=== PATIENT | female | born 1990 | race Caucasian/White ===

== ENCOUNTER 2016-09-06 15:25 | Emergency (ER) | payer OTHER ==
--- NOTE | 2016-09-06 19:50 | DIAGNOSTIC IMAGING REPORT ---
PROCEDURE: XR CHEST 2 VIEW INDICATION: PAIN TECHNIQUE: PA and lateral views. COMPARISON: None. FINDINGS: Lungs are clear. Heart and mediastinum are normal. Thorax is normal. IMPRESSION: 1. Negative chest.
--- NOTE | 2016-09-06 20:08 | DIAGNOSTIC IMAGING REPORT ---
PROCEDURE: CT ABDOMEN/PELVIS W/O CONTRAST INDICATION: Left flank pain. Prior cholecystectomy. TECHNIQUE: Noncontrast axial images with sagittal and coronal reformations. COMPARISON: None. FINDINGS: ABDOMEN: There is mild left hydronephrosis and hydroureter secondary to a 3 mm calculus located ureteral vesicle junction. Left kidney is otherwise normal. Right kidney and ureter are normal. Cholecystectomy (surgical clips). Liver, spleen, pancreas, and aorta are normal. Bowel pattern is normal, including appendix. Metal umbilical piercing device. PELVIS: Uterus and adnexal structures are within normal limits. Bilateral fallopian tubal occlusion devices in position. No evidence of free fluid. IMPRESSION: 1. There is mild left hydronephrosis and hydroureter secondary to a 3 mm calculus located ureteral vesicle junction. 2. Status post cholecystectomy. 3. Bilateral fallopian tube occlusive devices. 4. Findings discussed with Dr. Andres Villafuerte. All CT scans at this facility use dose modulation, iterative reconstruction, and/or weight-based dosing when appropriate to reduce radiation dose to as low as reasonably achievable.
--- NOTE | 2016-09-06 20:23 | ED NURSING NOTES ---
Clinical Report - Nurses [facility] [address] [place] [address] 09/06/2016 15:26 Patient: NO KIM TRIAGE Triage time 15:30 Sep 06 2016. Chief Complaint: VOMITING and (c/o left sided flank pain that began last night, hx of kidney stones). Alert. --15:34 Justine Beatty R.N. 15:29 09/06/16. BP: 122/65. HR: 56. RR: 19. O2 saturation: 100%. Temp: 97.5 F. Pain level now: 12/29. --15:34 Justine Beatty R.N. Weight: 62.1 kg. Height/Length: 62 inches. BMI: 25.1. --15:31 Justine Beatty R.N. Medications None. --15:31 Justine Beatty R.N. Allergies Keflex. Penicillins. --15:31 Justine Beatty R.N. Clindamycin. --15:32 Justine Beatty R.N. Benadryl. --15:32 Justine Beatty R.N. Medication/allergy information source: the patient. --15:34 Justine Beatty R.N. History Arrived by private vehicle. Historian: patient. Accompanied by family. Onset. (last night). She has had nausea and vomiting. Treatment VICE PRINCIPAL: None. PAST MEDICAL HX: Immunizations: up-to-date. Last normal menstrual period- 2nd to control. SOCIAL HX: Smoker- current status unknown. No alcohol use or drug use. No infectious disease exposure. No known contact with a sick individual. ABUSE ASSESSMENT: No report of abuse. SELF HARM ASSESSMENT: A self harm assessment was performed. The patient answered "no" to the question "Do you have thoughts of harming or killing yourself?". FALL RISK ASSESSMENT: Fall risk assessment completed. No fall risk identified. NUTRITIONAL RISK ASSESSMENT: The nutritional risk assessment revealed no deficiencies. FUNCTIONAL ASSESSMENT: Functional assessment: no impairments noted. LEARNING NEEDS ASSESSMENT: The learning needs assessment revealed no barriers. SKIN INTEGRITY ASSESSMENT: Skin integrity risk assessment completed. No skin integrity risk identified. --15:34 Jsutine Beatty R.N. PROBLEMS: Sciatica. Fibromyalgia. Diarrhea. Vomiting. Immunizations. LNMP - Last Normal Menstrual Period. . --15:32 Justine Beatty R.N. ADDITIONAL SURGERIES: Cholecystectomy. --15:32 Justine Beatty R.N. Interventions ID and allergy band on patient. --15:34 Justine Beatty R.N. PHYSICAL ASSESSMENT Ambulatory to room. Patient gowned. GENERAL / NEURO / PSYCH: Alert. Oriented X 4. Appears in pain and anxious. HEENT: Mucous membranes are pink. SKIN: Skin is warm and dry. --15:34 Justine Beatty R.N. NURSING PROGRESS NOTES Patient identifiers checked. Call light placed in reach. Side rails up x 1. Bed placed in lowest position. Brakes of bed on. Patient ready for evaluation- chart flagged. Patient waiting for evaluation. --15:34 Justine Beatty R.N. Head of bed elevated. Reassurance given. --15:34 Justine Beatty R.N. 15:37 09/06/2016 Site #1 started via IV in the left antecubital space with an 20g angiocath; one attempt. Blood drawn: rainbow set. Labeled in the presence of the patient and sent to the lab. Saline lock flushed with 10 mL saline. --15:37 Justine Beatty R.N. 15:41 09/06/2016 Zofran (Ondansetron HCl) IVP 4 mg given over 2 minute(s) via site #1. Allergies verified and confirmed 5 rights. IV patency established. IV site checked: no pain, redness, or swelling. IV flushed thoroughly pre- and post-medication administration. IVP given by RN. --15:46 Reg Bah R.N. 16:51 09/06/2016 Started bag #1 1000 mL IV Fluids IV NS (Saline); at 1000 mL/hr via site #1. Allergies verified and confirmed 5 rights. IV patency established. IV site checked: no pain, redness, or swelling. IV flushed thoroughly pre- and post-medication administration. --16:51 Justine Beatty R.N. ( warm blankets provided for comfort, pt aware of need for urine). --16:51 Justine Beatty R.N. 17:49 09/06/16. Checked patient name and birthdate: patient confirmed. Instructions provided to collect clean catch urine and patient verbalized understanding. Clean catch urine collected with return of yellow-colored clear urine; sample sent to lab for urinalysis, drug screen and HCG. Specimen labeled in the presence of the patient. --17:49 Teresa Nelson R.N. 17:55 09/06/2016 IV Fluids IV NS Discontinued: bag #1 infused. Total amount infused: 1000 mL. IV patency established. IV site checked: no pain, redness, or swelling. IV flushed thoroughly. --02:37 Luis Enrique Carnes R.N. 18:47 09/06/2016 Toradol IVP 30 mg given. via site #1. Allergies verified and confirmed 5 rights. IV patency established. IV site checked: no pain, redness, or swelling. IV flushed thoroughly pre- and post-medication administration. IVP given by RN. --18:52 Justine Beatty R.N. 18:52 09/06/16. BP: 109/57. HR: 78. RR: 15. O2 saturation: 99%. --18:53 Justine Beatty R.N. ( pt sleeping, mom remains at bedside). --18:53 Justine Beatty R.N. Patient identifiers checked. Call light placed in reach. Side rails up x 2. Bed placed in lowest position. Brakes of bed on. --18:53 Justine Beatty R.N. Patient transported to radiology by stretcher with tech. --19:13 Justine Beatty R.N. 20:12 09/06/2016 Dilaudid (HYDROmorphone HCl PF) IVP 0.5 mg given. via site #1. Allergies verified, confirmed 5 rights and sedative warning given to the patient and patient's family. IV patency established. IV site checked: no pain, redness, or swelling. IV flushed thoroughly pre- and post-medication administration. --20:12 Justine Beatty R.N. 20:12 09/06/16. BP: 117/86. HR: 64. RR: 15. O2 saturation: 99%. Pain level now: 08/29. --20:13 Justine Beatty R.N. ( pt up to bathroom independently, back on [facility], iv dilaudid given per MD order, mom at bedside, warm blankets provided for comfort). --20:13 Justine Beatty R.N. 20:18 09/06/2016 Flomax (Tamsulosin HCl) PO 0.4 mg given. Allergies verified and confirmed 5 rights. --20:18 Justine Beatty R.N. 20:37 09/06/2016 Site #1 removed upon discharge. Catheter intact. Manual pressure, pressure dressing and bandaid applied. --02:37 Luis Enrique Carnes R.N. DISPOSITION / DISCHARGE 20:40 09/06/16. BP: 121/81. HR: 72. RR: 16. O2 saturation: 100% on room air. Temp: 99.3 F (oral). Pain level now: 05/29. --02:28 Luis Enrique Carnes R.N. Departure time: 2042. --02:28 Luis Enrique Carnes R.N. 20:43. Condition at departure: improved. No learning barriers present. Discharge instructions provided and reviewed with the patient. Reviewed medication(s) (prescription given to pt). Reviewed referral to family practice. Patient verbalized understanding. Written instructions provided in Ukrainian. The patient was discharged by the physician. She was discharged home and accompanied by parent. She left the Emergency Department ambulatory and via private vehicle. Parent driving. --02:33 Luis Enrique Carnes R.N. Locked/Released at 09/07/2016 2:42 by Luis Enrique Carnes R.N.
--- NOTE | 2016-09-06 20:23 | ED ORDER SUMMARY ---
..... Patient: NO KIM OrderSheet [facility] VisitID: [id number] [place] [address] 25y, F Registration Date/Time: 09/06/2016 ORDER SHEET Weight: 62.1 kg Allergies: Keflex, Penicillins, Clindamycin, Benadryl GENERAL ORDERS: CBC w Diff Urgent (15:56 09/06/2016 David GOLDMAN) (Ack 16:07 AMcQuoid ER Tech1) (16:51 KPage-Kuchan R.N.) CMP Urgent (15:56 09/06/2016 David GOLDMAN) (Ack 16:07 AMcQuoid ER Tech1) (16:51 KPage-Kuchan R.N.) UA-Culture if indicated Urgent (15:56 09/06/2016 David GOLDMAN) (Ack 16:07 AMcQuoid ER Tech1) (17:48 MWinterer R.N.) Amylase Urgent (15:56 09/06/2016 David GOLDMAN) (Ack 16:07 AMcQuoid ER Tech1) (16:51 KPage-Kuchan R.N.) Lipase Urgent (15:56 09/06/2016 David GOLDMAN) (Ack 16:07 AMcQuoid ER Tech1) (16:51 KPage-Kuchan R.N.) Urine Urgent (15:56 09/06/2016 David GOLDMAN) (Ack 16:07 AMcQuoid ER Tech1) (17:48 MWinterer R.N.) Urine Drug Screen Urgent (16:38 09/06/2016 David GOLDMAN) (Ack 16:42 AMcQuoid ER Tech1) (17:48 MWinterer R.N.) Chest 2V Urgent (16:40 09/06/2016 David GOLDMAN) (Ack 16:44 AMcQuoid ER Tech1) (19:47 JRomanelli R.N.) CT Abd/Pel wo Cont Urgent (19:48 09/06/2016 David GOLDMAN) (Ack 19:50 AMcQuoid ER Tech1) (20:03 Navneet) MEDICATION ORDERS: Flomax PO 0.4 mg (Do not crush or chew, NOW) (20:07 09/06/2016 David GOLDMAN) (20:18 KPage-Kuchan R.N.) IV FLUIDS: Zofran IV 4 mg (NOW) (15:44 09/06/2016 KWilliams R.N. per protocol) (15:46 KWilliams R.N.) IV Saline Lock (15:45 09/06/2016 KWilliams R.N. per protocol) (15:45 KWilliams R.N.) IV NS with Normal Saline 1 Liter: initial bolus 1000 mL (1000 mL/hr), then none - (NOW) (16:49 09/06/2016 KPage-Kuchan R.N. verbal order read back to David GOLDMAN) (16:51 KPage-Kuchan R.N.) Toradol IV 30 mg (NOW) (18:32 09/06/2016 David GOLDMAN) (Ack 18:47 KPage-Kuchan R.N.) (18:52 KPage-Kuchan R.N.) Dilaudid IV 0.5 mg (HIGH ALERT MEDICATION, NOW) (20:11 09/06/2016 KPage-Kuchan R.N. verbal order read back to David GOLDMAN) (20:12 KPage-Kuchan R.N.) ORDER SHEET NOTES: [Electronically signed by Luis Enrique Carnes R.N. (02:42 09/07/2016)] [Electronically signed by Andres Villafuerte MD (09:58 09/08/2016)] [Electronically locked/signed by Luis Enrique Carnes R.N. (02:42 09/07/2016)]
--- NOTE | 2016-09-06 20:23 | ED ORDER SUMMARY ---
..... Patient: NO KIM OrderSheet [facility] VisitID: [id number] [place] [address] 25y, F Registration Date/Time: 09/06/2016 ORDER SHEET Weight: 62.1 kg Allergies: Keflex, Penicillins, Clindamycin, Benadryl GENERAL ORDERS: CBC w Diff Urgent (15:56 09/06/2016 David GOLDMAN) (Ack 16:07 AMcQuoid ER Tech1) (16:51 KPage-Kuchan R.N.) CMP Urgent (15:56 09/06/2016 David GOLDMAN) (Ack 16:07 AMcQuoid ER Tech1) (16:51 KPage-Kuchan R.N.) UA-Culture if indicated Urgent (15:56 09/06/2016 David GOLDMAN) (Ack 16:07 AMcQuoid ER Tech1) (17:48 MWinterer R.N.) Amylase Urgent (15:56 09/06/2016 David GOLDMAN) (Ack 16:07 AMcQuoid ER Tech1) (16:51 KPage-Kuchan R.N.) Lipase Urgent (15:56 09/06/2016 David GOLDMAN) (Ack 16:07 AMcQuoid ER Tech1) (16:51 KPage-Kuchan R.N.) Urine Urgent (15:56 09/06/2016 David GOLDMAN) (Ack 16:07 AMcQuoid ER Tech1) (17:48 MWinterer R.N.) Urine Drug Screen Urgent (16:38 09/06/2016 David GOLDMAN) (Ack 16:42 AMcQuoid ER Tech1) (17:48 MWinterer R.N.) Chest 2V Urgent (16:40 09/06/2016 David GOLDMAN) (Ack 16:44 AMcQuoid ER Tech1) (19:47 JRomanelli R.N.) CT Abd/Pel wo Cont Urgent (19:48 09/06/2016 David GOLDMAN) (Ack 19:50 AMcQuoid ER Tech1) (20:03 Navneet) MEDICATION ORDERS: Flomax PO 0.4 mg (Do not crush or chew, NOW) (20:07 09/06/2016 David GOLDMAN) (20:18 KPage-Kuchan R.N.) IV FLUIDS: Zofran IV 4 mg (NOW) (15:44 09/06/2016 KWilliams R.N. per protocol) (15:46 KWilliams R.N.) IV Saline Lock (15:45 09/06/2016 KWilliams R.N. per protocol) (15:45 KWilliams R.N.) IV NS with Normal Saline 1 Liter: initial bolus 1000 mL (1000 mL/hr), then none - (NOW) (16:49 09/06/2016 KPage-Kuchan R.N. verbal order read back to David GOLDMAN) (16:51 KPage-Kuchan R.N.) Toradol IV 30 mg (NOW) (18:32 09/06/2016 David GOLDMAN) (Ack 18:47 KPage-Kuchan R.N.) (18:52 KPage-Kuchan R.N.) Dilaudid IV 0.5 mg (HIGH ALERT MEDICATION, NOW) (20:11 09/06/2016 KPage-Kuchan R.N. verbal order read back to David GOLDMAN) (20:12 KPage-Kuchan R.N.) ORDER SHEET NOTES: [Electronically signed by Luis Enrique Carnes R.N. (02:42 09/07/2016)] [Electronically signed by Andres Villafuerte MD (09:58 09/08/2016)] [Electronically locked/signed by Luis Enrique Carnes R.N. (02:42 09/07/2016)]
--- NOTE | 2016-09-06 20:23 | ED CLINICAL REPORT ---
Clinical Report - Physicians/Mid Levels [facility] [address] [place] [address] 09/06/2016 15:26 Patient: NO KIM Time Seen: 15:57. Arrived- By private vehicle. Historian- patient. HISTORY OF PRESENT ILLNESS Chief Complaint: FLANK PAIN. At its maximum, severity described as severe and 10 / 10. When seen in the E.D., severity described as moderate. Modifying factors. Not relieved by anything. It is described as sharp and it is described as located in the left flank. This started last night and is still present. It was abrupt in onset and has been constant and waxing/waning. The patient has had nausea, loss of appetite and vomiting. No diarrhea. Similar symptoms previously: Diagnosis: kidney stone. REVIEW OF SYSTEMS Last normal menstrual period- 2 months ago. She has had irregular periods (chronically). She has had chills and difficulty breathing and experienced sweats. No fever, calf pain, chest pain, pedal edema or palpitations. No black stools, bloody stools, constipation or diarrhea. She has had a moderate cough productive of green sputum. All systems otherwise negative, except as recorded above. PAST HISTORY PCP - [facility]. Problems: Sciatica. Fibromyalgia. Diarrhea. Vomiting. Additional Surgeries: Cholecystectomy. Medications: None. Allergies: Benadryl. Clindamycin. Keflex. Penicillins. SOCIAL HISTORY Current every day heavy tobacco smoker (cigarette)- less than 1 pack per day. No alcohol use or drug use. FAMILY HISTORY Denies family medical history. ADDITIONAL NOTES The nursing notes have been reviewed. PHYSICAL EXAM Vital Signs: 09/06/2016 15:29 BP: 122/65. HR: 56. RR: 19. O2 saturation: 100%. Temp: 97.5 F. Pain level now: 10/10. Have been reviewed. Appearance: Alert. Eyes: Pupils equal, round and reactive to light. ENT: Pharynx normal. Neck: Normal inspection. Neck supple. CVS: Normal heart rate and rhythm. Heart sounds normal. Respiratory: No respiratory distress. Breath sounds normal. Abdomen: Soft and nontender. Bowel sounds normal. No organomegaly. No mass. Back: Normal inspection. No CVA tenderness. Skin: Skin warm and dry. Extremities: Extremities exhibit normal ROM. No calf tenderness. No lower extremity edema. LABS, X-RAYS, AND EKG Abdominal CT: IMPRESSION: 1. There is mild left hydronephrosis and hydroureter secondary to a 3 mm calculus located ureteral vesicle junction. 2. Status post cholecystectomy. 3. Bilateral fallopian tube occlusive devices. The study was interpreted contemporaneously by me and discussed with the radiologist. Laboratory Tests: UA-Culture if indicated: (ANGEL: 09/06/2016 17:45) ( [facility] 18[facility]40) Final results Test Result Flag Units (Reference) URINE COLOR STRAW URINE APPEARANCE CLEAR URINE GLUCOSE NEGATIVE (NEGATIVE) URINE BILIRUBIN NEGATIVE (NEGATIVE) URINE KETONE NEGATIVE (NEGATIVE) URINE SPECIFIC GRAVITY <= 1.005 L (1.010-1.030) URINE PH 7.0 (5.0-8.0) URINE PROTEIN NEGATIVE (NEGATIVE) URINE UROBILINOGEN 0.2 EU/dL (0.2-1.0) URINE NITRITE NEGATIVE (NEGATIVE) URINE BLOOD 3+ (NEGATIVE) URINE LEUK ESTERASE NEGATIVE (NEGATIVE) URINE RBC 50-75 rbc/hpf (0-1) URINE WBC 0-1 wbc/hpf (0-1) URINE EPITHELIAL CELLS 1-3 EPI/hpf (0-5) URINE BACTERIA TRACE (<1+) (NONE SEEN) URINE COMMENT CULT NOT INDICATED 1+ MUCUSURINE CULTURES ARE SET-UP BASED ON THE FOLLOWING CRITERIA:POSITIVE NITRITEPOSITIVE LEUKOCYTE ESTERASEGREATER THAN 10 WHITE BLOOD CELLSMODERATE (2+) OR GREATER BACTERIA Urine: (ANGEL: 09/06/2016 17:45) ( [facility] 09/06/2016 18:29) Final results Test Result Flag Units (Reference) URINE NEGATIVE CBC w Diff: (ANGEL: 09/06/2016 15:39) ( [facility] 09/06/[facility] 16:11) Final results Test Result Flag Units (Reference) WHITE BLOOD COUNT 8.9 K/uL (4.5-11.5) RED BLOOD COUNT 4.69 M/uL (4.00-5.20) HEMOGLOBIN 14.7 gm/dL (12.0-16.0) HEMATOCRIT 43.1 % (36.0-46.0) MEAN CELL VOLUME 92 fL (80-100) MEAN CORPUSCULAR HGB 31 pg (26-34) MEAN CORPUSCULAR HGB CONC 34 g/dL (31-37) RED CELL DISTRIBUTION WIDTH 12.4 % (11.6-14.8) PLATELET COUNT 218 K/uL (150-400) LYMPH % 17.7 L % (25-40) MONO % 5.1 % (3-14) GRANULOCYTE % 77.2 (53-90) Urine Drug Screen: (ANGEL: 09/06/2016 17:45) ( MsgRcvd 09/06/2016 18:31) Final results Test Result Flag Units (Reference) AMPHETAMINE/METHAMPHETAMINE NEGATIVE (NEGATIVE) BARBITURATE NEGATIVE (NEGATIVE) BENZODIAZEPINE NEGATIVE (NEGATIVE) CANNABINOID NEGATIVE (NEGATIVE) COCAINE NEGATIVE (NEGATIVE) ECSTASY NEGATIVE (NEGATIVE) METHADONE NEGATIVE (NEGATIVE) OPIATE POSITIVE H (NEGATIVE) The urine drug screen is a qualitative screening test fordrug overdose and abuse. All screen results should beconsidered as presumptive.Drugs screened for are as follows:BenzodiazepinesCocaineAmphetamines/MetamphetaminesTHC (Tetrahydrocannabinol)OpiatesBarbituratesEcstasyMethadonePositive results are unconfirmed. For confirmation, notifythe lab for the specimen to be sent to the reference lab.All confirmations must be performed by a differentmethodology.The ingestion of natural herbal and plant productscontaining Ephedra/Ephedra metabolites can produce in urineone or more substances capable of cross reacting withamphetamine/methamphetamine immunoassays. These testsprovide a preliminary result only. A more specificalternative chemical method must be used to obtain aconfirmed analytical result. CMP: (ANGEL: 09/06/2016 15:39) ( MsgRcvd 09/06/2016 16:13) Final results Test Result Flag Units (Reference) GLUCOSE 142 H mg/dL (70-110) BUN 13 mg/dL (7-18) CREATININE 0.8 mg/dL (0.6-1.3) Estimated GFR >60 mL/min Estimated GFR- >60 mL/min Note: Persistent reduction over 3 months in eGFR<60 mL/min/1.73 m2 defines CKD. Patients with eGFR values>=60 mL/min/1.73 m2 may also have CKD if evidence ofpersistent proteinuria. Additional information may be foundat www.kidney.org. SODIUM 142 mmol/L (136-145) POTASSIUM 3.9 mmol/L (3.5-5.1) CHLORIDE 106 mmol/L (98-107) CARBON DIOXIDE 25 mmol/L (21-32) CALCIUM 9.3 mg/dL (8.5-10.1) TOTAL PROTEIN 7.6 g/dL (6.4-8.2) ALBUMIN 4.2 g/dL (3.3-5.0) BILIRUBIN, TOTAL 0.3 mg/dL (0.0-1.0) ALKALINE PHOSPHATASE 56 U/L (46-116) AST (SGOT) 13 L U/L (15-37) ALT (SGPT) 17 U/L (12-78) LIPASE 132 U/L (73-393) AMYLASE 76 U/L (25-115) . PROGRESS AND PROCEDURES Course of Care: Patient is stable. Patient/family counseled. Old medical records reviewed. Disposition: Discharged. Condition: stable. CLINICAL IMPRESSION Left renal colic in the left ureter with a single calculus with hematuria. INSTRUCTIONS No driving or operating machinery while taking medication. Sedative medication was given during your visit. Drink plenty of fluids. (Strain your urine and look for evidence of a stone as discussed. If one is found save this and take it to your primary care provider. They can send it to a lab have it analyzed and hopefully advise you on dietary modifications to decrease the risk of more of these in the future.). Warnings: Further evaluation is necessary. GENERAL WARNINGS: Return or contact your physician immediately if your condition worsens or changes unexpectedly, if not improving as expected, or if other problems arise. Prescription Medications: Hydrocodone/APAP 5mg/325mg: take 1 to 2 orally every 6 hours as needed for pain. Dispense fifteen (15). No refills. Flomax 0.4 mg: take 1 orally every 24 hours. Dispense five (5). No refills. Substitution is permissible. Follow-up: Follow up with your doctor BOUCHRA WU in three days. Call for the next available appointment. Follow up with a urologist- as recommended by your primary care physician. Understanding of the discharge instructions verbalized by patient. (Electronically signed by Andres Villafuerte MD 09/08/2016 9:58)
--- NOTE | 2016-09-08 09:59 | ED MAR SUMMARY ---
..... Medication Administration Record [address] [place] [address] Patient: NO KIM Visit ID: [id number] 25y, F Weight: 62.1 kg Height/Length: 62 in BMI: 25.1 ALLERGIES: Benadryl, Clindamycin, Penicillins, Keflex Given 15:41 09/06/2016 Reg Bah REdwin Medication Administered: ZOFRAN [IVP] (ONDANSETRON HCL), Dose: 4 mg IVP over 2 minute(s), Site: #1 left AC. Medication Ordered: Zofran IV 4 mg (NOW). Start 16:51 09/06/2016 Justine Beatty R.N., Stop 17:55 09/06/2016 Luis Enrique Carnes RRichNRich Medication Administered: IV NS (SALINE), Dose: IV Fluids, Rate: 1000 mL/hr, Dispensed: 1000 mL bag, Site: #1 left AC. Medication Ordered: IV NS with Normal Saline 1 Liter: initial bolus 1000 mL (1000 mL/hr), then none - (NOW). Given 18:47 09/06/2016 Justine Beatty R.N. Medication Administered: TORADOL [IVP], Dose: 30 mg IVP, Site: #1 left AC. Medication Ordered: Toradol IV 30 mg (NOW). Given 20:12 09/06/2016 Justine Beatty R.N. Medication Administered: DILAUDID [IVP] (HYDROMORPHONE HCL PF), Dose: 0.5 mg IVP, Site: #1 left AC. Medication Ordered: Dilaudid IV 0.5 mg (HIGH ALERT MEDICATION, NOW). Given 20:18 09/06/2016 Justine Beatty R.N. Medication Administered: FLOMAX [PO] (TAMSULOSIN HCL), Dose: 0.4 mg PO. Medication Ordered: Flomax PO 0.4 mg (Do not crush or chew, NOW).
--- NOTE | 2016-09-08 09:59 | ED DISCHARGE INSTRUCTIONS ---
Patient: NO KIM General Instructions [facility] VisitID: [id number] [place] [address] 25y, F Registration Date/Time: 09/06/2016 Left renal colic in the left ureter with a single calculus with hematuria. INSTRUCTIONS No driving or operating machinery while taking medication. Sedative medication was given during your visit. Drink plenty of fluids. (Strain your urine and look for evidence of a stone as discussed. If one is found save this and take it to your primary care provider. They can send it to a lab have it analyzed and hopefully advise you on dietary modifications to decrease the risk of more of these in the future.). Warnings: Further evaluation is necessary. GENERAL WARNINGS: Return or contact your physician immediately if your condition worsens or changes unexpectedly, if not improving as expected, or if other problems arise. Prescription Medications: Hydrocodone/APAP 5mg/325mg: take 1 to 2 orally every 6 hours as needed for pain. Dispense fifteen (15). No refills. Flomax 0.4 mg: take 1 orally every 24 hours. Dispense five (5). No refills. Substitution is permissible. Follow-up: Follow up with your doctor BOUCHRA WU in three days. Call for the next available appointment. Follow up with a urologist- as recommended by your primary care physician. Understanding of the discharge instructions verbalized by patient. ADDITIONAL INFORMATION Kidney Stone (W/ Colic) The sharp cramping pain and nausea/vomiting that you have is due to a small stone which has formed in the kidney and is now passing down a narrow tube (ureter) on its way to your bladder. Once it reaches your bladder, the pain will stop. The stone may pass in your urine stream in one piece. [The size may be 1/16" to 1/4" (1-6mm)]. Or, the stone may also break up into hair fragments which you may not even notice. Once you have had a kidney stone, you are at risk for developing another one in the future. Home Care: Drink plenty of fluids (at least 8 to 10 glasses of water a day). Most stones will pass on their own, but may take from a few hours to a few days. Sometimes the stone is too large to pass by itself and special methods will have to be used to remove the stone. Each time you urinate, do so in a jar. Pour the urine from the jar through the strainer and into the toilet. Continue doing this until 24 hours after your pain stops. By then, if there was a kidney stone, it should pass from your bladder. Some stones dissolve into sand-like particles and pass right through the strainer. In that case, you wont ever see a stone. Save any stone that you find in the strainer and bring it to your doctor for analysis. It may be possible to prevent certain types of stones from forming. Therefore, it is important to know what kind of stone you have. Try to stay as active as possible since this will help the stone pass. Do not stay in bed unless your pain prevents you from getting up. You may notice a red, pink or brown color to your urine. This is normal while passing a kidney stone. Follow Up with your doctor or return to this facility if the pain lasts more than 48 hours. Get Prompt Medical Attention if any of the following occur: Pain that is not controlled by the medicine given Repeated vomiting or unable to keep down fluids Weakness, dizziness or fainting Fever of 100.4F (38C) or higher, or as directed by your healthcare provider Passage of solid red or brown urine (can't see through it) or urine with lots of blood clots Unable to pass urine for 8 hours and increasing bladder pressure Hydrocodone Bitartrate, Acetaminophen Oral tablet What is this medicine? ACETAMINOPHEN; HYDROCODONE (a set a JYOTI shelley fen; gregor droe KOE done) is a pain reliever. It is used to treat mild to moderate pain. How should I use this medicine? Take this medicine by mouth. Swallow it with a full glass of water. Follow the directions on the prescription label. If the medicine upsets your stomach, take the medicine with food or milk. Do not take more than you are told to take. Talk to your feather boner regarding the use of this medicine in children. This medicine is not approved for use in children. What side effects may I notice from receiving this medicine? Side effects that you should report to your doctor or health rn critical care as soon as possible: allergic reactions like skin rash, itching or hives, swelling of the face, lips, or tongue breathing problems confusion feeling faint or lightheaded, falls stomach pain yellowing of the eyes or skin Side effects that usually do not require medical attention (report to your doctor or health rn critical care if they continue or are bothersome): nausea, vomiting stomach upset What may interact with this medicine? alcohol antihistamines isoniazid medicines for depression, anxiety, or psychotic disturbances medicines for sleep muscle relaxants naltrexone narcotic medicines (opiates) for pain phenobarbital ritonavir tramadol What if I miss a dose? If you miss a dose, take it as soon as you can. If it is almost time for your next dose, take only that dose. Do not take double or extra doses. Where should I keep my medicine? Keep out of the reach of children. This medicine can be abused. Keep your medicine in a safe place to protect it from theft. Do not share this medicine with anyone. Selling or giving away this medicine is dangerous and against the law. Store at room temperature between 15 and 30 degrees C (59 and 86 degrees F). Protect from light. Keep container tightly closed. Throw away any unused medicine after the expiration date. Discard unused medicine and used packaging carefully. Pets and children can be harmed if they find used or lost packages. What should I tell my health care provider before I take this medicine? They need to know if you have any of these conditions: brain tumor Crohn's disease, inflammatory bowel disease, or ulcerative colitis drink more than 3 alcohol-containing drinks per day drug abuse or addiction head injury heart or circulation problems kidney disease or problems going to the bathroom liver disease lung disease, asthma, or breathing problems an unusual or allergic reaction to acetaminophen, hydrocodone, other opioid analgesics, other medicines, foods, dyes, or preservatives or trying to get breast-feeding What should I watch for while using this medicine? Tell your doctor or health rn critical care if your pain does not go away, if it gets worse, or if you have new or a different type of pain. You may develop tolerance to the medicine. Tolerance means that you will need a higher dose of the medicine for pain relief. Tolerance is normal and is expected if you take the medicine for a long time. Do not suddenly stop taking your medicine because you may develop a severe reaction. Your body becomes used to the medicine. This does NOT mean you are addicted. Addiction is a behavior related to getting and using a drug for a non-medical reason. If you have pain, you have a medical reason to take pain medicine. Your doctor will tell you how much medicine to take. If your doctor wants you to stop the medicine, the dose will be slowly lowered over time to avoid any side effects. You may get drowsy or dizzy when you first start taking the medicine or change doses. Do not drive, use machinery, or do anything that may be dangerous until you know how the medicine affects you. Stand or sit up slowly. There are different types of narcotic medicines (opiates) for pain. If you take more than one type at the same time, you may have more side effects. Give your health care provider a list of all medicines you use. Your doctor will tell you how much medicine to take. Do not take more medicine than directed. Call emergency for help if you have problems breathing. The medicine will cause constipation. Try to have a bowel movement at least every 2 to 3 days. If you do not have a bowel movement for 3 days, call your doctor or health rn critical care. Too much acetaminophen can be very dangerous. Do not take Tylenol (acetaminophen) or medicines that contain acetaminophen with this medicine. Many non-prescription medicines contain acetaminophen. Always read the labels carefully. You have been given the following additional information: Kidney Stone W/ Colic Hydrocodone Bitartrate, Acetaminophen Oral tablet No driving or operating machinery while taking medication. Sedative medication was given during your visit. (Electronically signed by Andres Villafuerte MD 09/08/2016 9:58)
--- NOTE | 2016-09-08 09:59 | ED MAR SUMMARY ---
..... Medication Administration Record [facility] [address] [place] [address] Patient: NO KIM Visit ID: [id number] 25y, F Weight: 62.1 kg Height/Length: 62 in BMI: 25.1 ALLERGIES: Benadryl, Clindamycin, Penicillins, Keflex Given 15:41 09/06/2016 Reg Bah REdwin Medication Administered: ZOFRAN [IVP] (ONDANSETRON HCL), Dose: 4 mg IVP over 2 minute(s), Site: #1 left AC. Medication Ordered: Zofran IV 4 mg (NOW). Start 16:51 09/06/2016 Justine Beatty R.N., Stop 17:55 09/06/2016 Luis Enrique Carnes RRichNRich Medication Administered: IV NS (SALINE), Dose: IV Fluids, Rate: 1000 mL/hr, Dispensed: 1000 mL bag, Site: #1 left AC. Medication Ordered: IV NS with Normal Saline 1 Liter: initial bolus 1000 mL (1000 mL/hr), then none - (NOW). Given 18:47 09/06/2016 Justine Beatty R.N. Medication Administered: TORADOL [IVP], Dose: 30 mg IVP, Site: #1 left AC. Medication Ordered: Toradol IV 30 mg (NOW). Given 20:12 09/06/2016 Justine Beatty R.N. Medication Administered: DILAUDID [IVP] (HYDROMORPHONE HCL PF), Dose: 0.5 mg IVP, Site: #1 left AC. Medication Ordered: Dilaudid IV 0.5 mg (HIGH ALERT MEDICATION, NOW). Given 20:18 09/06/2016 Justine Beatty R.N. Medication Administered: FLOMAX [PO] (TAMSULOSIN HCL), Dose: 0.4 mg PO. Medication Ordered: Flomax PO 0.4 mg (Do not crush or chew, NOW).
--- NOTE | 2016-09-08 09:59 | ED MED RECONCILIATION SUMMARY ---
Patient: NO KIM Medication Reconciliation Report [facility] VisitID: [id number] [place] [address] 25y, F Registration Date/Time: 09/06/2016 Weight: 62.1 kg Height/Length: 62 in. BMI: 25.1 ALLERGIES: Benadryl, Clindamycin, Keflex, Penicillins The patient's Home Medications are listed below: NONE. The source(s) of the original Home Medication information: patient The following Medications were given to the patient in the Emergency Department: Zofran [IVP] IVP 4 mg, administered: 09/06/2016 3:41:00 PM IV NS IV Fluids bolus 0, then 1000 mL/hr, administered: 09/06/2016 4:51:00 PM Toradol [IVP] IVP 30 mg, administered: 09/06/2016 6:47:00 PM Dilaudid [IVP] IVP 0.5 mg, administered: 09/06/2016 8:12:00 PM Flomax [PO] PO 0.4 mg, administered: 09/06/2016 8:18:00 PM The following Medications were prescribed to the patient: Hydrocodone/APAP 5mg/325mg: take 1 to 2 orally every 6 hours as needed for pain. Dispense fifteen (15). No refills. -- Andres Villafuerte MD Flomax 0.4 mg: take 1 orally every 24 hours. Dispense five (5). No refills. Substitution is permissible. -- Andres Villafuerte MD
--- NOTE | 2016-09-08 09:59 | ED DISCHARGE INSTRUCTIONS ---
Patient: NO KIM General Instructions [facility] VisitID: [id number] [place] [address] 25y, F Registration Date/Time: 09/06/2016 Left renal colic in the left ureter with a single calculus with hematuria. INSTRUCTIONS No driving or operating machinery while taking medication. Sedative medication was given during your visit. Drink plenty of fluids. (Strain your urine and look for evidence of a stone as discussed. If one is found save this and take it to your primary care provider. They can send it to a lab have it analyzed and hopefully advise you on dietary modifications to decrease the risk of more of these in the future.). Warnings: Further evaluation is necessary. GENERAL WARNINGS: Return or contact your physician immediately if your condition worsens or changes unexpectedly, if not improving as expected, or if other problems arise. Prescription Medications: Hydrocodone/APAP 5mg/325mg: take 1 to 2 orally every 6 hours as needed for pain. Dispense fifteen (15). No refills. Flomax 0.4 mg: take 1 orally every 24 hours. Dispense five (5). No refills. Substitution is permissible. Follow-up: Follow up with your doctor BOUCHRA WU in three days. Call for the next available appointment. Follow up with a urologist- as recommended by your primary care physician. Understanding of the discharge instructions verbalized by patient. ADDITIONAL INFORMATION Kidney Stone (W/ Colic) The sharp cramping pain and nausea/vomiting that you have is due to a small stone which has formed in the kidney and is now passing down a narrow tube (ureter) on its way to your bladder. Once it reaches your bladder, the pain will stop. The stone may pass in your urine stream in one piece. [The size may be 1/16" to 1/4" (1-6mm)]. Or, the stone may also break up into hair fragments which you may not even notice. Once you have had a kidney stone, you are at risk for developing another one in the future. Home Care: Drink plenty of fluids (at least 8 to 10 glasses of water a day). Most stones will pass on their own, but may take from a few hours to a few days. Sometimes the stone is too large to pass by itself and special methods will have to be used to remove the stone. Each time you urinate, do so in a jar. Pour the urine from the jar through the strainer and into the toilet. Continue doing this until 24 hours after your pain stops. By then, if there was a kidney stone, it should pass from your bladder. Some stones dissolve into sand-like particles and pass right through the strainer. In that case, you wont ever see a stone. Save any stone that you find in the strainer and bring it to your doctor for analysis. It may be possible to prevent certain types of stones from forming. Therefore, it is important to know what kind of stone you have. Try to stay as active as possible since this will help the stone pass. Do not stay in bed unless your pain prevents you from getting up. You may notice a red, pink or brown color to your urine. This is normal while passing a kidney stone. Follow Up with your doctor or return to this facility if the pain lasts more than 48 hours. Get Prompt Medical Attention if any of the following occur: Pain that is not controlled by the medicine given Repeated vomiting or unable to keep down fluids Weakness, dizziness or fainting Fever of 100.4F (38C) or higher, or as directed by your healthcare provider Passage of solid red or brown urine (can't see through it) or urine with lots of blood clots Unable to pass urine for 8 hours and increasing bladder pressure Hydrocodone Bitartrate, Acetaminophen Oral tablet What is this medicine? ACETAMINOPHEN; HYDROCODONE (a set a JYTOI shelley fen; gregor droe KOE done) is a pain reliever. It is used to treat mild to moderate pain. How should I use this medicine? Take this medicine by mouth. Swallow it with a full glass of water. Follow the directions on the prescription label. If the medicine upsets your stomach, take the medicine with food or milk. Do not take more than you are told to take. Talk to your arch pad cementer regarding the use of this medicine in children. This medicine is not approved for use in children. What side effects may I notice from receiving this medicine? Side effects that you should report to your doctor or health child caregiver as soon as possible: allergic reactions like skin rash, itching or hives, swelling of the face, lips, or tongue breathing problems confusion feeling faint or lightheaded, falls stomach pain yellowing of the eyes or skin Side effects that usually do not require medical attention (report to your doctor or health child caregiver if they continue or are bothersome): nausea, vomiting stomach upset What may interact with this medicine? alcohol antihistamines isoniazid medicines for depression, anxiety, or psychotic disturbances medicines for sleep muscle relaxants naltrexone narcotic medicines (opiates) for pain phenobarbital ritonavir tramadol What if I miss a dose? If you miss a dose, take it as soon as you can. If it is almost time for your next dose, take only that dose. Do not take double or extra doses. Where should I keep my medicine? Keep out of the reach of children. This medicine can be abused. Keep your medicine in a safe place to protect it from theft. Do not share this medicine with anyone. Selling or giving away this medicine is dangerous and against the law. Store at room temperature between 15 and 30 degrees C (59 and 86 degrees F). Protect from light. Keep container tightly closed. Throw away any unused medicine after the expiration date. Discard unused medicine and used packaging carefully. Pets and children can be harmed if they find used or lost packages. What should I tell my health care provider before I take this medicine? They need to know if you have any of these conditions: brain tumor Crohn's disease, inflammatory bowel disease, or ulcerative colitis drink more than 3 alcohol-containing drinks per day drug abuse or addiction head injury heart or circulation problems kidney disease or problems going to the bathroom liver disease lung disease, asthma, or breathing problems an unusual or allergic reaction to acetaminophen, hydrocodone, other opioid analgesics, other medicines, foods, dyes, or preservatives or trying to get breast-feeding What should I watch for while using this medicine? Tell your doctor or health child caregiver if your pain does not go away, if it gets worse, or if you have new or a different type of pain. You may develop tolerance to the medicine. Tolerance means that you will need a higher dose of the medicine for pain relief. Tolerance is normal and is expected if you take the medicine for a long time. Do not suddenly stop taking your medicine because you may develop a severe reaction. Your body becomes used to the medicine. This does NOT mean you are addicted. Addiction is a behavior related to getting and using a drug for a non-medical reason. If you have pain, you have a medical reason to take pain medicine. Your doctor will tell you how much medicine to take. If your doctor wants you to stop the medicine, the dose will be slowly lowered over time to avoid any side effects. You may get drowsy or dizzy when you first start taking the medicine or change doses. Do not drive, use machinery, or do anything that may be dangerous until you know how the medicine affects you. Stand or sit up slowly. There are different types of narcotic medicines (opiates) for pain. If you take more than one type at the same time, you may have more side effects. Give your health care provider a list of all medicines you use. Your doctor will tell you how much medicine to take. Do not take more medicine than directed. Call emergency for help if you have problems breathing. The medicine will cause constipation. Try to have a bowel movement at least every 2 to 3 days. If you do not have a bowel movement for 3 days, call your doctor or health child caregiver. Too much acetaminophen can be very dangerous. Do not take Tylenol (acetaminophen) or medicines that contain acetaminophen with this medicine. Many non-prescription medicines contain acetaminophen. Always read the labels carefully. You have been given the following additional information: Kidney Stone W/ Colic Hydrocodone Bitartrate, Acetaminophen Oral tablet No driving or operating machinery while taking medication. Sedative medication was given during your visit. (Electronically signed by Andres Villafuerte MD 09/08/2016 9:58)
--- NOTE | 2016-09-08 09:59 | ED MED RECONCILIATION SUMMARY ---
Patient: NO KIM Medication Reconciliation Report [facility] VisitID: [id number] [place] [address] 25y, F Registration Date/Time: 09/06/2016 Weight: 62.1 kg Height/Length: 62 in. BMI: 25.1 ALLERGIES: Benadryl, Clindamycin, Keflex, Penicillins The patient's Home Medications are listed below: NONE. The source(s) of the original Home Medication information: patient The following Medications were given to the patient in the Emergency Department: Zofran [IVP] IVP 4 mg, administered: 09/06/2016 3:41:00 PM IV NS IV Fluids bolus 0, then 1000 mL/hr, administered: 09/06/2016 4:51:00 PM Toradol [IVP] IVP 30 mg, administered: 09/06/2016 6:47:00 PM Dilaudid [IVP] IVP 0.5 mg, administered: 09/06/2016 8:12:00 PM Flomax [PO] PO 0.4 mg, administered: 09/06/2016 8:18:00 PM The following Medications were prescribed to the patient: Hydrocodone/APAP 5mg/325mg: take 1 to 2 orally every 6 hours as needed for pain. Dispense fifteen (15). No refills. -- Andres Villafuerte MD Flomax 0.4 mg: take 1 orally every 24 hours. Dispense five (5). No refills. Substitution is permissible. -- Andres Villafuerte MD
== END 2016-09-06 20:43 | disposition home or self-care (01) ==
LOC: ED SRH 15:25
DX: N20.2 Calculus of kidney with calculus of ureter (principal); R31.9 Hematuria, unspecified; Z88.8 Allergy status to other drugs, medicaments and biological substances; Z88.1 Allergy status to other antibiotic agents; Z88.0 Allergy status to penicillin; Z72.0 Tobacco use
CPT/HCPCS: 90004; 90100; 92235; 92530; 92760; 92761; 92762; 92763; 92764; 92765; 92766; 92767; 93070; 95059